=== PATIENT | female | born 1960 | race Caucasian/White ===

== ENCOUNTER 2023-11-27 03:58 | Emergency (ER) | payer BC ==
[2023-11-27] MEDS ORDERED: MORPHINE 4 MG/ML SYR ONE (05:11)
[2023-11-27] MEDS ORDERED: ONDANSETRON 4 MG/2 ML VIAL ONE (05:11)
[2023-11-27 05:45] LABS: Absolute Basophils 0.1 K/uL (0-0.5); Absolute Eosinophils 0.3 K/uL (0-0.5); Absolute Lymphocytes (CBC) 1.6 K/uL (0.7-4.9); Absolute Monocytes 0.5 K/uL (0.1-1.3); Absolute Neutrophil 4.3 K/uL (1.8-8.0); Basophils % 1.4 % (0-1.3); Eosinophils % 5.1 % (0-4.4); Hematocrit 42.7 % (36.0-45.0); Hemoglobin 14.4 g/dL (12.0-15.0); Lymphocytes % 23.5 % (15.3-44.8); MCH 30.8 pg (27.0-35.0); MCHC 33.8 g/dL (32.0-36.0); MCV 91.3 fL (80-100); MPV 7.7 fL (7.6-11.3); Monocytes % 7.2 % (3.3-12.3); Neutrophils % 62.8 % (41.7-73.7); Nucleated Red Blood Cells % 0.4 % (0-0); Platelets 305 thou/uL (152-406); RBC Red Blood Cell Count 4.68 M/uL (3.86-4.86); Red Cell Distribution Width 13.1 % (12.1-15.2)
[2023-11-27 05:58] LABS: Albumin 3.4 g/dL (3.4-5.0); Albumin/Globulin Ratio 0.9 (1.1-1.8); Anion Gap 6.9 mEq/L (5.0-15.0); Bilirubin Total 0.8 mg/dL (0.2-1.0); Globulin 3.9 g/dL (2.3-3.5); Potassium 3.9 mEq/L (3.5-5.1); Protein, Total 7.3 g/dL (6.4-8.2)
--- NOTE | 2023-11-27 06:48 | RAD REPORT ---
EXAM DESCRIPTION: CTAbdomen Pelvis W Contrast - 11/27/2023 6:26 am CLINICAL HISTORY: LLQ pain;Abd pain COMPARISON: Abdomen Pelvis W/Wo Contrast dated 10/27/2023 TECHNIQUE: CT of the abdomen and pelvis was performed with IV contrast. All CT scans are performed using dose optimization technique as appropriate and may include automated exposure control or mA/KV adjustment according to patient size. FINDINGS: Lower chest: No acute abnormality. Liver: Hepatic steatosis Biliary: Extrahepatic biliary duct dilatation is unchanged and probably related to the postcholecyste ctomy state. Cholecystectomy. Stomach: No significant focal abnormality. Duodenum: No significant focal abnormality. Pancreas: No significant abnormality. Spleen: No significant abnormality. Adrenal: Bilateral adrenal lesions which are unchanged and have been previously characterized as adelaida omas. Kidney/ureter: No hydronephrosis. No renal calculi. Retroperitoneum: No retroperitoneal adenopathy. Vascular: No aneurysm. Atherosclerosis. Bowel: No significant focal abnormality. Normal appendix. Peritoneum: No ascites or free air. Bladder: Grossly unremarkable. Reproductive: Hysterectomy Bones: No acute fracture. Other: n/a IMPRESSION: No acute intra-abdominal or pelvic finding. Normal appendix. Incidental findings as note d above.
[2023-11-27 06:56] LABS: Specific Gravity 1.009 (1.005-1.030); Urine Bilirubin NEGATIVE (Negative); Urine Blood Negative (Negative); Urine Clarity Clear (Clear); Urine Color Colorless (Yellow); Urine Glucose NEGATIVE (Negative); Urine Ketones NEGATIVE (Negative); Urine Microscopic Reflex YN NO UMIC; Urine Nitrite NEGATIVE (Negative); Urine Protein NEGATIVE (Negative); Urine Urobilinogen Normal (Normal)
--- NOTE | 2023-11-27 06:57 | EDPHYS ---
Physician Documentation [facility] Name: Carolyn Doe Age: 63 yrs Sex: Female : 1960 Arrival Date: 11/27/2023 Time: 03:58 Bed 6 Private MD: ED Physician Shamar Perera HPI: 11/26 04:45 This 63 yrs old Female presents to ER via Ambulatory with complaints of Flank ec2 Pain, Abdominal Pain. 04:45 Patient arrives today for at least 1 week of left-sided lower quadrant abdominal pain. ec2 Patient reports pain has been intermittent, states that she has a history of colitis. Patient reports associated nausea. Patient denies any vomiting, no bowel issues, denies urinary complaints. Previous surgeries include , cholecystectomy.. Historical: - Allergies: 04:20 No Known Allergies; vc1 - PMHx: 04:20 Hypertension; Myocardial infarction (1999); Hyperlipidemia; Colitis; vc1 - PSHx: 04:20 Total abdominal hysterectomy; vc1 - Immunization history:: Client reports receiving the 2nd dose of the Covid vaccine, Flu vaccine is not up to date. - Infectious Disease History:: Denies. - Social history:: Smoking status: Patient denies any tobacco usage or history of. ROS: 04:45 Constitutional: as per hpi ec2 Exam: 04:45 Constitutional: GEN: NAD Head: atraumatic Eyes: EOMI Ears: External ears are ec2 normal. CV: regular rate LUNGS: no respiratory distress ABD: non-distended, left lower quadrant TTP, no guarding, nonrigid, negative flank bilaterally. SKIN: no evidence of rashes MSK: no evidence of trauma NEURO: moves all extremities equally Vital Signs: 04:18 Weight 83.91 kg; Height 5 ft. 2 in. ; Pain 8/10; vc1 04:22 BP 184 / 91; Pulse 69; Resp 16; Temp 97.7; Pulse Ox 97% ; vc1 05:20 BP 153 / 81; Pulse 65; Resp 17 S; Pulse Ox 97% on R/A; ha1 06:00 BP 142 / 71; Pulse 64; Resp 17 S; Pulse Ox 94% on R/A; ha1 07:00 BP 146 / 69; Pulse 67; Resp 18; Temp 97.7; Pulse Ox 97% ; cp4 04:18 Body Mass Index 33.84 (83.91 kg, 157.48 cm) vc1 04:18 Pain Scale: Adult vc1 MDM: 04:20 Patient medically screened. ec2 04:46 Data reviewed: vital signs. ED course: Patient arrives today for left lower quadrant ec2 abdominal pain for examination remarkable for well-appearing nontoxic visualized reassuring hemodynamics who has a tender abdomen. Will obtain lab work, CT imaging and treat the patient symptoms. Differential diagnosis includes colitis, diverticulitis, urinary tract infection, ureteral stone.. 06:07 ED course: Metabolic profile and lipase are nonactionable.. ec2 06:53 ED course: CT abdomen pelvis shows chronic findings, no acute pathology identified. I ec2 reassessed the patient is well-appearing in no acute distress. I instructed her to follow-up with her primary care doctor as well as her GI doctor for further evaluation. Patient discharged home. Return precautions given . 11/26 04:33 Order name: CBC with Diff; Complete Time: 05:58 ec2 11/26 04:33 Order name: CMP; Complete Time: 06:07 ec2 11/26 04:33 Order name: Lipase; Complete Time: 06:07 ec2 11/26 04:33 Order name: Urinalysis w/ reflexes; Complete Time: 06:57 ec2 11/26 04:45 Order name: CT Abd/Pelvis - IV Contrast Only; Complete Time: 06:52 ec2 11/26 04:33 Order name: IV Saline Lock; Complete Time: 05:29 ec2 11/26 04:33 Order name: Labs collected and sent; Complete Time: 05:29 ec2 Administered Medications: 05:18 Drug: Ondansetron IVP 4 mg IVP once; over 2 minutes Route: IVP; Site: right antecubital;ha1 05:42 Follow up: Response: No adverse reaction; Marked relief of symptoms ha1 05:54 Follow up: Response: No adverse reaction cp4 05:20 Drug: morphine IVP or IV 4 mg IVP once over 4 mins Route: IVP; Infused Over: 4 mins; ha1 Site: right antecubital; 05:54 Follow up: Response: No adverse reaction; Pain is decreased cp4 Disposition Summary: 11/27/23 06:56 Discharge Ordered Notes: Location: Home ec2 Condition: Stable ec2 Diagnosis - Abdominal pain, Generalized ec2 Followup: ec2 - With: Private Physician - When: - Reason: Recheck today's complaints Followup: ec2 - With: Anders Bonilla MD - When: - Reason: Recheck today's complaints Discharge Instructions: - Discharge Summary Sheet ec2 - Abdominal Pain, Adult ec2 Forms: - Medication Reconciliation Form ec2 - Antibiotic Education ec2 - Prescription Opioid Use ec2 - Patient Portal Instructions ec2 - Leadership Thank You Letter ec2 Prescriptions: - Zofran 4 mg Oral Tablet - take 1 tablet ORAL route every 12 hours As needed; 20 tablet; Refills: 0, ec2 Product Selection Permitted - Pepcid 20 mg Oral Tablet - take 1 tablet ORAL route once daily; 20 tablet; Refills: 0, Product Selection ec2 Permitted Signatures: Dispatcher [employer] EDMS Laine Pavon, RN RN vc1 Daisha Simon RN RN ha1 Shamar Perera MD MD ec2 Yeny Ly cp4 Corrections: (The following items were deleted from the chart) 04:34 04:34 CBC+H.LAB.BRZ ordered. EDMS EDMS 04:34 04:34 COMPREHENSIVE METABOLIC PANEL+C.LAB.BRZ ordered. EDMS EDMS 04:34 04:34 LIPASE+C.LAB.BRZ ordered. EDMS EDMS 04:34 04:34 Urinalysis+U.LAB.BRZ ordered. EDCO EDMS 04:46 04:46 Abdomen Pelvis W Con+CT.RAD.BRZ ordered. EDMS EDMS 04:46 04:45 Patient arrives today for at least 1 week of left-sided lower quadrant abdominal ec2 pain. Patient reports pain has been intermittent, states that she has a history of colitis. Patient reports associated nausea. Patient denies any vomiting, no bowel issues, denies urinary complaints.. ec2
--- NOTE | 2023-11-27 06:57 | ER ---
Nurse's Notes [facility] Name: Carolyn Doe Age: 63 yrs Sex: Female : 1960 Arrival Date: 11/27/2023 Time: 03:58 Bed 6 Private MD: Diagnosis: Abdominal pain, Generalized Presentation: 11/26 04:18 Chief complaint: Patient states: left sided abdominal pain. Coronavirus screen: Client vc1 denies travel out of the [place] in the last 14 days. Client presents with at least one sign or symptom that may indicate coronavirus-19. At this time, the client does not indicate any symptoms associated with coronavirus-19. Ebola Screen: Patient negative for fever greater than or equal to 101.5 degrees Fahrenheit, and additional compatible Ebola Virus Disease symptoms Patient denies exposure to infectious person. Patient denies travel to an Ebola-affected area in the 21 days before illness onset. No symptoms or risks identified at this time. Initial Sepsis Screen: Does the patient meet any 2 criteria? No. Patient's initial sepsis screen is negative. Does the patient have a suspected source of infection? No. Patient's initial sepsis screen is negative. Risk Assessment: Do you want to hurt yourself or someone else? Patient reports no desire to harm self or others. Note x 7 days. Onset of symptoms is unknown. Care prior to arrival: Medication(s) given: Motrin, 800 mg, 0200. 04:18 Method Of Arrival: Ambulatory vc1 04:18 Acuity: SIA 3 vc1 Historical: - Allergies: 04:20 No Known Allergies; vc1 - PMHx: 04:20 Hypertension; Myocardial infarction (1999); Hyperlipidemia; Colitis; vc1 - PSHx: 04:20 Total abdominal hysterectomy; vc1 - Immunization history:: Client reports receiving the 2nd dose of the Covid vaccine, Flu vaccine is not up to date. - Infectious Disease History:: Denies. - Social history:: Smoking status: Patient denies any tobacco usage or history of. Screenin:21 [facility] ED Fall Risk Assessment (Adult) History of falling in the last 3 months, vc1 including since admission No falls in past 3 months (0 pts) Confusion or Disorientation No (0 pts) Intoxicated or Sedated No (0 pts) Impaired Gait No (0 pts) Mobility Assist Device Used No (0 pt) Altered Elimination No (0 pt) Score/Fall Risk Level 0 - 2 = Low Risk Oriented to surroundings, Maintained a safe environment, Educated pt \T\ family on fall prevention, incl call for assistance when getting out of bed. Abuse screen: Denies threats or abuse. Nutritional screening: No deficits noted. Tuberculosis screening: No symptoms or risk factors identified. Assessment: 05:15 General: Appears uncomfortable, Behavior is calm, cooperative, appropriate for age. cp4 Pain: Complains of pain in right upper quadrant and right lower quadrant. GI: Bowel sounds present X 4 quads. Abd is soft and non tender X 4 quads. 06:00 Reassessment: Patient and/or family updated on plan of care and expected duration. Pain ha1 level reassessed. Patient is alert, oriented x 3, equal unlabored respirations, skin warm/dry/pink. pain 2/10 Patient states feeling better. Patient states symptoms have improved. Vital Signs: 04:18 Weight 83.91 kg; Height 5 ft. 2 in. ; Pain 8/10; vc1 04:22 BP 184 / 91; Pulse 69; Resp 16; Temp 97.7; Pulse Ox 97% ; vc1 05:20 BP 153 / 81; Pulse 65; Resp 17 S; Pulse Ox 97% on R/A; ha1 06:00 BP 142 / 71; Pulse 64; Resp 17 S; Pulse Ox 94% on R/A; ha1 07:00 BP 146 / 69; Pulse 67; Resp 18; Temp 97.7; Pulse Ox 97% ; cp4 04:18 Body Mass Index 33.84 (83.91 kg, 157.48 cm) vc1 04:18 Pain Scale: Adult vc1 ED Course: 04:01 Patient arrived in ED. gm2 04:09 Shamar Perera MD is Attending Physician. ec2 04:20 Triage completed. vc1 04:21 Arm band placed on right wrist. vc1 05:15 Bed in low position. Call light in reach. Side rails up X 1. Provided Education on: cp4 abdominal pain. 05:15 Urinalysis w/ reflexes Sent. cp4 05:15 No provider procedures requiring assistance completed. cp4 05:16 Urine collected: clean catch specimen, clear. cp4 05:29 CBC with Diff Sent. ha1 05:29 CMP Sent. ha1 05:29 Lipase Sent. ha1 05:29 Urinalysis w/ reflexes Sent. ha1 06:27 CT Abd/Pelvis - IV Contrast Only In Process Unspecified. EDMS 06:56 Anders Bonilla MD is Referral Physician. ec2 07:01 intact, bleeding controlled, No redness/swelling at site. Pressure dressing applied. cp4 Administered Medications: 05:18 Drug: Ondansetron IVP 4 mg IVP once; over 2 minutes Route: IVP; Site: right antecubital;ha1 05:42 Follow up: Response: No adverse reaction; Marked relief of symptoms ha1 05:54 Follow up: Response: No adverse reaction cp4 05:20 Drug: morphine IVP or IV 4 mg IVP once over 4 mins Route: IVP; Infused Over: 4 mins; ha1 Site: right antecubital; 05:54 Follow up: Response: No adverse reaction; Pain is decreased cp4 Medication: 04:22 VIS not applicable for this client. vc1 Outcome: 06:56 Discharge ordered by . ec2 07:01 Discharged to home ambulatory, cp4 07:01 Condition: stable 07:01 Discharge instructions given to patient, Instructed on discharge instructions, follow up and referral plans. medication usage, Demonstrated understanding of instructions, follow-up care, medications, Prescriptions given X 2, 07:02 Patient left the ED. cp4 Signatures: Dispatcher [employer] EDIN Laine Pavon RN RN vc1 Daisha Simon RN RN ha1 Shamar Perera MD MD ec2 Yeny Ly cp4 Priscilla Lee [facility]
[2023-11-27 07:47] VITALS: BP 146/69; TEMP 97.7; O2SAT 97
== END 2023-11-27 07:02 | disposition home or self-care (01) ==
LOC: ER 03:58
DX: R10.84 Generalized abdominal pain (principal)
CPT/HCPCS: 85025; 36415; 81003; 83690; 80053; 74177; Q9967; J2405

== ENCOUNTER 2024-09-09 18:04 | Emergency (ER) | payer BC ==
[2024-09-09] MEDS ORDERED: ASPIRIN 81 MG CHEWABLE TABLET ONE (18:27)
[2024-09-09] MEDS ORDERED: MORPHINE 2 MG/ML SYR ONE (18:28)
[2024-09-09 18:50] LABS: Absolute Basophils 0.1 K/uL (0-0.5); Absolute Eosinophils 0.4 K/uL (0-0.5); Absolute Lymphocytes (CBC) 2.3 K/uL (0.7-4.9); Absolute Monocytes 0.6 K/uL (0.1-1.3); Absolute Neutrophil 2.9 K/uL (1.8-8.0); Basophils % 1.3 % (0-1.3); Hemoglobin 14.1 g/dL (12.0-15.0); Lymphocytes % 36.8 % (15.3-44.8); MCH 31.1 pg (27.0-35.0); MCHC 34.4 g/dL (32.0-36.0); MCV 90.2 fL (80-100); MPV 7.8 fL (7.6-11.3); Monocytes % 9.1 % (3.3-12.3); Neutrophils % 45.8 % (41.7-73.7); Platelets 280 thou/uL (152-406); RBC Red Blood Cell Count 4.54 M/uL (3.86-4.86); Red Cell Distribution Width 13.6 % (12.1-15.2)
[2024-09-09 18:52] LABS: Protime INR 0.96
[2024-09-09 19:04] LABS: Albumin 3.4 g/dL (3.4-5.0); Anion Gap 8.7 mEq/L (5.0-15.0); Bilirubin Direct 0.2 mg/dL (0-0.2); Bilirubin Indirect, Calculated 0.5 mg/dL (0.2-0.8); Bilirubin Total 0.7 mg/dL (0.2-1.0); Globulin 3.5 g/dL (2.3-3.5); Magnesium 2.2 mg/dL (1.6-2.4); Potassium 3.7 mEq/L (3.5-5.1); Protein, Total 6.9 g/dL (6.4-8.2); Troponin High Sensitivity 5.8 pg/mL (<58.9)
--- NOTE | 2024-09-09 19:09 | RAD REPORT ---
EXAMINATION: ONE VIEW CHEST XR CLINICAL INDICATION: Female, 64 years old.,right arm pain TECHNIQUE: Frontal chest projection is submitted. Examination is limited by patient positioning and t echnique. COMPARISON: 01/21/2017 FINDINGS: The lungs are well inflated and clear. No pneumothorax or sizable effusion. The heart is normal in s ize. Mediastinal contours are unremarkable. IMPRESSION: No acute intrathoracic abnormalities.
--- NOTE | 2024-09-09 19:10 | RAD REPORT ---
EXAMINATION: UPPER EXTREMITY VENOUS UNILATE CLINICAL INDICATION: Female, 64 years old. [facility] MAIN PAIN Bed Name: 8 TECHNIQUE: Complete venous duplex sonography of the right upper extremity was performed. The examinat ion included compression for vein patency, color Doppler imaging and flow augmentation in response to distal compression of the internal jugular, brachiocephalic, subclavian, axillary, brachial, radia l, ulnar, cephalic and basilic veins. COMPARISON: No prior exam. FINDINGS: Duplex sonography testing of the veins of the right upper extremity is completed. Color flow imaging shows all veins to be compressible with appropriate color filling. Pulsatile and phasic flow is present within the upper extremity deep and superficial veins examined. IMPRESSION: There is no deep vein or superficial vein thrombosis.
[2024-09-09] MEDS ORDERED: KETOROLAC 30 MG/ML INJ ONE (19:16)
[2024-09-09] MEDS ORDERED: methocarbamoL 750 MG TAB ONE (19:16)
--- NOTE | 2024-09-09 20:54 | RAD REPORT ---
EXAM: CT Chest Angio TECHNIQUE: CT angiogram of the chest was performed following intravenous contrast administration, inc luding sagittal and coronal as well as maximum intensity projection reformats. One or more of the following dose reduction techniques were used: Automated exposure control, adjustment of the mA and k V according to patient size, and iterative reconstruction. Unless otherwise specified, incidental findings do not require dedicated imaging follow-up. INDICATION: right arm pain;Chest pain COMPARISON: Chest radiograph of earlier the same day. CT abdomen and pelvis 11/27/2023. FINDINGS: LINES/TUBES: None. PULMONARY ARTERIES: Main pulmonary arteries are normal in caliber. No filling defects within the pul monary arteries to suggest pulmonary embolus. LUNGS AND AIRWAYS: The lungs and central airways are normal without focal abnormality. PLEURA: No effusion or pneumothorax. HEART AND MEDIASTINUM: The visualized thyroid gland is normal. No mediastinal, hilar, or axillary lym phadenopathy. Heart is unremarkable. No pericardial effusion. SOFT TISSUES AND BONES: No acute osseous abnormality. No significant soft tissue finding. UPPER ABDOMEN: Stable bilateral adrenal nodules measuring 2.3 cm on the right and 1.4 cm on the left, not well characterized. Status post cholecystectomy.. IMPRESSION: No evidence of acute central pulmonary emboli. No suspicious intrathoracic findings.. Stable bilateral adrenal nodules, likely benign, although not well characterized on this exam
[2024-09-09] MEDS ORDERED: HYDROCODONE/APAP 7.5/325 MG TAB ONE (21:39)
--- NOTE | 2024-09-09 22:32 | EDPHYS ---
Physician Documentation [facility] Name: Carolyn Doe Age: 64 yrs Sex: Female : 1960 Arrival Date: 09/09/2024 Time: 18:04 Bed 8 Private MD: ED Physician Shay Patino HPI: 09/09 18:20 This 64 yrs old Female presents to ER via Ambulatory with complaints of Arm Pain. cp 18:20 The patient or guardian complains of pain, that is acute. The complaints affect the cp right axilla, right upper arm and right forearm. 18:20 Context: resulted from unknown cause. Onset: The symptoms/episode began/occurred 10 cp day(s) ago. Associated signs and symptoms: Pertinent positives: radiating pain to right side of chest, Pertinent negatives: fever, numbness, fever, injury. Severity of symptoms: in the emergency department the symptoms are unchanged, despite home interventions. yes pain to left arm that was symptom of WI. Historical: - Allergies: 18:10 No Known Allergies; iw - PMHx: 18:10 Myocardial infarction (1999); Hypertension; Hyperlipidemia; Colitis; iw - PSHx: 18:10 Total abdominal hysterectomy; iw - Immunization history:: Adult Immunizations not up to date. - Infectious Disease History:: Denies. - Social history:: Smoking status: Patient reports the use of cigarette tobacco products, Patient denies any tobacco usage or history of. ROS: 18:25 Constitutional: Negative for body aches, chills, fever, poor PO intake, cp 18:25 Eyes: Negative for injury, pain, redness, and discharge, cp 18:25 ENT: Negative for drainage from ear(s), ear pain, sore throat, difficulty swallowing, difficulty handling secretions, 18:25 Neck: Negative for pain with movement, pain at rest, stiffness, tenderness, bony tenderness, 18:25 Cardiovascular: Positive for chest pain, of the right anterior chest, Negative for edema, palpitations, 18:25 Respiratory: Negative for cough, shortness of breath, wheezing, 18:25 Abdomen/GI: Negative for abdominal pain, vomiting, diarrhea, constipation, 18:25 Back: Negative for pain at rest, pain with movement, 18:25 MS/extremity: Positive for pain, tenderness, of the right arm, Negative for injury or acute deformity, decreased range of motion, paresthesias, swelling, 18:25 Neuro: Negative for altered mental status, headache, numbness, speech changes, syncope, weakness, 18:25 All other systems are negative, Exam: 18:30 Constitutional: The patient appears in no acute distress, alert, awake, cp non-diaphoretic, non-toxic, well developed, well nourished, 18:30 Head/Face: Normocephalic, atraumatic. cp 18:30 Eyes: Periorbital structures: appear normal, Conjunctiva: normal, no exudate, no injection, Sclera: no appreciated abnormality, Lids and lashes: appear normal, bilaterally, 18:30 ENT: External ear(s): are unremarkable, Nose: is normal, Mouth: Lips: moist, Oral mucosa: moist, Posterior pharynx: Airway: no evidence of obstruction, patent, 18:30 Neck: C-spine: vertebral tenderness, is not appreciated, crepitus, is not appreciated, ROM/movement: is normal, is supple, without pain, no range of motions limitations, 18:30 Chest/axilla: Inspection: normal, 18:30 Cardiovascular: Rate: normal, Rhythm: regular, Edema: is not appreciated, JVD: is not appreciated, 18:30 Respiratory: the patient does not display signs of respiratory distress, Respirations: normal, no use of accessory muscles, no retractions, labored breathing, is not present, Breath sounds: are clear throughout, no decreased breath sounds, no stridor, no wheezing, 18:30 Abdomen/GI: Inspection: abdomen appears normal, Palpation: abdomen is soft and non-tender, in all quadrants, 18:30 Back: pain, is absent, ROM is normal, 18:30 Musculoskeletal/extremity: Extremities: noted in the right arm: pain, tenderness, There is no evidence of decreased ROM, ROM: full active range of motion, in the right arm, Pulses: noted to be 2+ in the right radial artery, the right arm Sensation intact. 18:30 Skin: cellulitis, is not appreciated, no rash present. 18:30 Neuro: Orientation: to person, place \T\ time. Mentation: is normal, 18:37 ECG was reviewed by the Attending Physician. cp Vital Signs: 16:29 BP 167 / 94 LA; hb 18:08 BP 159 / 85; Pulse 89; Resp 16; Temp 97.9; Pulse Ox 97% on R/A; Weight 84.82 kg; Height iw 5 ft. 3 in. ; Pain 6/10; 18:31 BP 180 / 112 RA; hb 19:13 BP 145 / 61; Pulse 67; Resp 16; Pulse Ox 97% ; jb4 20:44 BP 159 / 87; Pulse 71; Resp 16; Pulse Ox 96% ; vc1 21:30 BP 173 / 79; Pulse 65; Resp 16; Pulse Ox 97% ; vc1 22:30 BP 167 / 78; Pulse 63; Resp 15; Pulse Ox 96% ; vc1 18:08 Body Mass Index 33.12 (84.82 kg, 160.02 cm) iw 18:08 Pain Scale: Adult iw MDM: 18:12 Medical Screening Exam initiated cp 19:00 Differential diagnosis: tendonitis, dvt, cellulitis, acute WI, pulmonary embolism, AAA. 22:31 Data reviewed: vital signs, nurses notes, lab test result(s), EKG, radiologic studies, cp CT scan, plain films, and as a result, I will discharge patient. 22:31 I considered the following discharge prescriptions or medication management in the emergency department Medications were administered in the Emergency Department. See MAR. Independent interpretation of the following test(s) in the Emergency Department EKG: See my EKG interpretation above. Care significantly affected by the following chronic conditions: Hypertension. Counseling: I had a detailed discussion with the patient and/or guardian regarding the historical points, exam findings, and any diagnostic results supporting the discharge/admit diagnosis, the presence of at least one elevated blood pressure reading (>120/80) during this emergency department visit, lab results, radiology results, the need for outpatient follow up, a bobcat operator, to return to the emergency department if symptoms worsen or persist or if there are any questions or concerns that arise at home. Response to treatment: the patient's symptoms have mildly improved after treatment, and as a result, I will discharge patient. Special discussion: Based on the patient's history, exam, and Dx evaluation, there is no indication for emergent intervention or inpatient Tx. It is understood by the patient/guardian that if the Sx's persist or worsen they need to return immediately for re-evaluation. 09/09 18:20 Order name: Basic Metabolic Panel; Complete Time: 19:10 cp 09/09 19:10 Interpretation: Normal except: CL 109; GLUC 137. cp 04/ 18:20 Order name: CBC with Diff; Complete Time: 19:10 cp 04/ 22:30 Interpretation: Reviewed. cp 04/ 18:20 Order name: LFT's; Complete Time: 19:10 cp 04/ 22:30 Interpretation: Normal except: AST 62; A/G 1.0. cp / 18:20 Order name: Magnesium; Complete Time: 19:10 cp 09/09 18:20 Order name: NT PRO-BNP; Complete Time: 19:10 cp / 18:20 Order name: PT-INR; Complete Time: 19:10 cp 09/09 18:20 Order name: Troponin HS; Complete Time: 19:10 cp / 19:13 Interpretation: Reviewed. cp / 21:14 Order name: Troponin High Sensitivity; Complete Time: 22:30 cp / 22:30 Interpretation: Reviewed. cp 09/09 18:20 Order name: XRAY Chest (1 view); Complete Time: 19:10 cp 09/09 18:28 Order name: UPPER EXTREMITY VENOUS UNILATE; Complete Time: 19:11 EDMS / 19:11 Interpretation: Report reviewed. cp 09/09 19:51 Order name: CT Chest Angio; Complete Time: 21:14 cp 09/09 21:14 Interpretation: Report reviewed. cp / 18:20 Order name: EKG; Complete Time: 18:21 cp / 18:20 Order name: Cardiac monitoring; Complete Time: 18:22 cp 09/09 18:20 Order name: EKG - Nurse/Tech; Complete Time: 18:22 cp 09/09 18:20 Order name: IV Saline Lock; Complete Time: 18:49 cp / 18:20 Order name: Labs collected and sent; Complete Time: 18:49 cp 09/09 18:20 Order name: O2 Per Protocol; Complete Time: 18:22 cp 04/ 18:20 Order name: O2 Sat Monitoring; Complete Time: 18:22 cp / 18:20 Order name: Blood Pressure Recheck: bilateral upper extremity; Complete Time: 18:30 cp EC:37 Rate is 74 beats/min. Rhythm is regular. HI interval is normal. QRS interval is normal. cp QT interval is normal. T waves are Inverted in lead aVL. Interpreted by me. Reviewed by me. Administered Medications: 18:30 Drug: Aspirin PO Chewable Tablet 324 mg PO once; 81 mg tablets x 4 Route: PO; hb 19:00 Follow up: Response: No adverse reaction vc1 18:30 Not Given (Patient Refused): morphineor iv 2 mg IVP once over 4 mins hb 18:30 Not Given (Patient Refused): morphineor iv 2 mg IVP once over 4 mins hb 19:13 Not Given (Patient Refused): [id number] mg 10 mg IVP once jb4 20:11 Drug: Methocarbamol PO 750 mg PO once Route: PO; jb4 21:47 Follow up: Response: No adverse reaction; Marked relief of symptoms vc1 21:46 Drug: Hydrocodone-Acetaminophen PO (7.5 mg-325 mg) 1 tabs PO once; RASS on ADMIN: vc1 Combtv4, Very Agttd3, Agttd2, Rstlss1, AlertClm0, Drwsy-1, Lt Sdtn-2, Mod Sdtn-3, Dp Sdtn-4, UnArsble-5 Route: PO; 22:35 Follow up: Response: No adverse reaction; Marked relief of symptoms vc1 Disposition: 09/10 04:51 Co-signature as Attending Physician, Shay Patino MD I agree with the assessment and oren plan of care. Disposition Summary: 09/09/24 22:32 Discharge Ordered Notes: Location: Home cp Problem: new cp Symptoms: have improved cp Condition: Stable cp Diagnosis - Pain in right arm cp - Chest pain, unspecified cp Followup: cp - With: Private Physician - When: 2 - 3 days - Reason: Recheck today's complaints Discharge Instructions: - Discharge Summary Sheet cp - Nonspecific Chest Pain, Adult cp - Musculoskeletal Pain cp - Aspirin and Your Heart cp Forms: - Medication Reconciliation Form cp - Antibiotic Education cp - Prescription Opioid Use cp - Patient Portal Instructions cp - Leadership Thank You Letter cp Prescriptions: - Diclofenac Sodium 75 mg Oral tablet, delayed release (enteric coated) - take 1 tablet ORAL route 2 times per day; 20 tablet; Refills: 0, Product cp Selection Permitted - methocarbamol 750 mg Oral tablet - take 1 tablet ORAL route 3 times per day; 30 tablet; Refills: 0, Product cp Selection Permitted Signatures: Dispatcher [facility] EDMS Shay Patino MD MD cha Williams, Irene, RN RN iw Shay Quijano PA PA cp Baxter, Heather, RN RN Prasanna Erazo, RN RN jb4 Laine Pavon RN RN vc1 Corrections: (The following items were deleted from the chart) 09/09 18:21 18:21 Extremity Venous Uni [id number] ordered. EDMS EDMS
--- NOTE | 2024-09-09 22:32 | ER ---
Nurse's Notes [facility] Name: Carolyn Doe Age: 64 yrs Sex: Female : 1960 Arrival Date: 09/09/2024 Time: 18:04 Bed 8 Private MD: Diagnosis: Pain in right arm;Chest pain, unspecified Presentation: 09/09 18:08 Chief complaint: Patient states: right arm pain for a week and half, was prescribed iw gabapentin but not helping. Coronavirus screen: At this time, the client does not indicate any symptoms associated with coronavirus-19. Ebola Screen: No symptoms or risks identified at this time. Initial Sepsis Screen: Does the patient meet any 2 criteria? No. Patient's initial sepsis screen is negative. Does the patient have a suspected source of infection? No. Patient's initial sepsis screen is negative. Risk Assessment: Do you want to hurt yourself or someone else? Patient reports no desire to harm self or others. Onset of symptoms was August 28, 2024. 18:08 Method Of Arrival: Ambulatory iw 18:08 Acuity: SIA 3 iw Historical: - Allergies: 18:10 No Known Allergies; iw - PMHx: 18:10 Myocardial infarction (1999); Hypertension; Hyperlipidemia; Colitis; iw - PSHx: 18:10 Total abdominal hysterectomy; iw - Immunization history:: Adult Immunizations not up to date. - Infectious Disease History:: Denies. - Social history:: Smoking status: Patient reports the use of cigarette tobacco products, Patient denies any tobacco usage or history of. Screenin:00 [facility] ED Fall Risk Assessment (Adult) History of falling in the last 3 months, vc1 including since admission No falls in past 3 months (0 pts) Confusion or Disorientation No (0 pts) Intoxicated or Sedated No (0 pts) Impaired Gait No (0 pts) Mobility Assist Device Used No (0 pt) Altered Elimination No (0 pt) Score/Fall Risk Level 0 - 2 = Low Risk Oriented to surroundings, Maintained a safe environment, Educated pt \T\ family on fall prevention, incl call for assistance when getting out of bed, Hourly rounding (assess needs \T\ fall precautionary measures) done. Abuse screen: Denies threats or abuse. Nutritional screening: No deficits noted. Tuberculosis screening: No symptoms or risk factors identified. Assessment: 19:13 General: Appears in no apparent distress. comfortable, obese, well groomed, Behavior is jb4 calm, cooperative, appropriate for age. Pain: Complains of pain in right arm Pain does not radiate. Pain currently is 4 out of 10 on a pain scale. Neuro: Level of Consciousness is awake, alert, obeys commands, Oriented to person, place, time, situation, Appropriate for age. Cardiovascular: Heart tones S1 S2 present Capillary refill < 3 seconds Patient's skin is warm and dry. Respiratory: Airway is patent Respiratory effort is even, unlabored, Respiratory pattern is regular, symmetrical, Breath sounds are clear bilaterally. GI: No deficits noted. No signs and/or symptoms were reported involving the gastrointestinal system. : No deficits noted. No signs and/or symptoms were reported regarding the genitourinary system. EENT: No deficits noted. No signs and/or symptoms were reported regarding the EENT system. Derm: Skin is intact, is healthy with good turgor, Skin is dry, Skin is normal, Skin temperature is warm. Musculoskeletal: Circulation, motion, and sensation intact. Range of motion: intact in all extremities, Reports pain in right arm. 20:42 Reassessment: Patient appears in no apparent distress at this time. No changes from vc1 previously documented assessment. Patient and/or family updated on plan of care and expected duration. Pain level reassessed. Patient is alert, oriented x 3, equal unlabored respirations, skin warm/dry/pink. 21:47 Reassessment: Patient appears in no apparent distress at this time. No changes from vc1 previously documented assessment. Patient and/or family updated on plan of care and expected duration. Pain level reassessed. Patient is alert, oriented x 3, equal unlabored respirations, skin warm/dry/pink. 22:30 Reassessment: Patient appears in no apparent distress at this time. No changes from vc1 previously documented assessment. Patient and/or family updated on plan of care and expected duration. Pain level reassessed. Patient is alert, oriented x 3, equal unlabored respirations, skin warm/dry/pink. Vital Signs: 16:29 BP 167 / 94 LA; hb 18:08 BP 159 / 85; Pulse 89; Resp 16; Temp 97.9; Pulse Ox 97% on R/A; Weight 84.82 kg; Height iw 5 ft. 3 in. ; Pain 6/10; 18:31 BP 180 / 112 RA; hb 19:13 BP 145 / 61; Pulse 67; Resp 16; Pulse Ox 97% ; jb4 20:44 BP 159 / 87; Pulse 71; Resp 16; Pulse Ox 96% ; vc1 21:30 BP 173 / 79; Pulse 65; Resp 16; Pulse Ox 97% ; vc1 22:30 BP 167 / 78; Pulse 63; Resp 15; Pulse Ox 96% ; vc1 18:08 Body Mass Index 33.12 (84.82 kg, 160.02 cm) iw 18:08 Pain Scale: Adult iw ED Course: 18:05 Patient arrived in ED. mr 18:06 Shay Quijano PA is PHCP. cp 18:06 Mark Saldana MD is Attending Physician. cp 18:09 Triage completed. iw 18:10 Arm band placed on. iw 18:37 XRAY Chest (1 view) In Process Unspecified. EDMS 18:59 UPPER EXTREMITY VENOUS UNILATE In Process Unspecified. EDMS 19:00 Patient has correct armband on for positive identification. Bed in low position. Call vc1 light in reach. Pulse ox on. NIBP on. 20:11 Prasanna Lui, RN is Primary Nurse. jb4 20:31 CT Chest Angio In Process Unspecified. EDMS 20:43 Provided Education on: call light, ultrasound, muscle relaxer. vc1 21:27 Shay Patino MD is Attending Physician. cp 21:46 Troponin High Sensitivity Sent. vc1 22:34 No provider procedures requiring assistance completed. IV discontinued, intact, vc1 bleeding controlled, No redness/swelling at site. Pressure dressing applied. Administered Medications: 18:30 Drug: Aspirin PO Chewable Tablet 324 mg PO once; 81 mg tablets x 4 Route: PO; hb 19:00 Follow up: Response: No adverse reaction vc1 18:30 Not Given (Patient Refused): morphineor iv 2 mg IVP once over 4 mins hb 18:30 Not Given (Patient Refused): morphineor iv 2 mg IVP once over 4 mins hb 19:13 Not Given (Patient Refused): [id number] mg 10 mg IVP once jb4 20:11 Drug: Methocarbamol PO 750 mg PO once Route: PO; jb4 21:47 Follow up: Response: No adverse reaction; Marked relief of symptoms vc1 21:46 Drug: Hydrocodone-Acetaminophen PO (7.5 mg-325 mg) 1 tabs PO once; RASS on ADMIN: vc1 Combtv4, Very Agttd3, Agttd2, Rstlss1, AlertClm0, Drwsy-1, Lt Sdtn-2, Mod Sdtn-3, Dp Sdtn-4, UnArsble-5 Route: PO; 22:35 Follow up: Response: No adverse reaction; Marked relief of symptoms vc1 Medication: 20:42 VIS not applicable for this client. vc1 Outcome: 22:32 Discharge ordered by . cp 22:35 Discharged to home ambulatory, vc1 22:35 Condition: stable 22:35 Discharge instructions given to patient, Instructed on discharge instructions, follow up and referral plans. medication usage, Demonstrated understanding of instructions, follow-up care, medications, Prescriptions given X 2, 22:40 Patient left the ED. al5 Signatures: Dispatcher [employer] EDMS Henny Ravi, Reg Reg mr Tania Witt, RN RN iw Shay Quijano PA PA cp Baxter, Heather, RN RN Prasanna Erazo RN RN jb4 Laine Pavon RN RN vc1 Roz Gaffney RN RN al5 Corrections: (The following items were deleted from the chart) 18:10 18:08 Resp 16bpm; Pulse Ox 97% RA; Temp 97.9F; 84.82 kg; Height 5 ft. 3 in.; BMI: 33.1; iw Pain 6, Adult; iw
[2024-09-09 22:47] VITALS: TEMP 97.9
[2024-09-09 22:55] VITALS: BP 167/78; O2SAT 96
--- NOTE | 2024-09-10 11:30 | EKG ---
Test Date: 2024-09-09 Test Time: 18:19:42 Cake Cutter Machine: JORGE MEASUREMENT RESULTS: Intervals: Rate: 74 IN: 150 QRSD: 88 QT: 384 QTc: 426 [place]: P: 52 IN: 150 QRS: 29 T: 67 INTERPRETIVE STATEMENTS: Normal sinus rhythm Normal ECG Compared to ECG 01/21/2017 18:50:28 Sinus bradycardia no longer present Electronically Signed On 09-10-24 11:28:42 CDT by William Kelley
== END 2024-09-09 22:40 | disposition home or self-care (01) ==
LOC: ER 18:04
DX: R07.9 Chest pain, unspecified (principal); I10 Essential (primary) hypertension; I25.2 Old myocardial infarction; Z72.0 Tobacco use
CPT/HCPCS: 93005; 85025; 80048; 36415; 83735; 85610; 80076; 84484 ×2; 83880; 71275; 71045; 93971; 99284; Q9967; J2270